=== PATIENT | male | born 1970 | race Caucasian/White ===

== ENCOUNTER 2019-08-14 22:39 | Emergency (ER) | payer OTHER ==
[~2019-08-14] VITALS: Ht 180.3 cm; Wt 70.5 kg
[2019-08-14] MEDS ORDERED: CLOZ100T57 PO (22:43)
[2019-08-14] MEDS ORDERED: OMEP10 PO (22:43)
[2019-08-14] MEDS ORDERED: BENZ1TAB10 PO (22:43)
[2019-08-15 01:48] VITALS: BP 140/88
== END 2019-08-15 02:31 | disposition home or self-care (01) ==
LOC: EMS 22:39
DX: Z76.0 Encounter for issue of repeat prescription (principal); F20.9 Schizophrenia, unspecified; F17.210 Nicotine dependence, cigarettes, uncomplicated

== ENCOUNTER 2019-08-15 09:41 | Inpatient (IN) | payer OTHER, MEDICAID ==
[~2019-08-15] VITALS: Ht 180.3 cm; Wt 62.8 kg
[~2019-08-15 09:41] MED LIST: BENZ1TAB10 PO; CLOZ100T57 PO; OMEP10 PO
[2019-08-15 10:32] LABS: BASOPHILS % (AUTO) 0.6 % (0.0-2.0); EOSINOPHILS % (AUTO) 0 % (1.0-6.0); HEMOGLOBIN 14.1 g/dL (13.5-17.5); LYMPHOCYTES # (AUTO) 0.9 K/uL (1.0-4.8); LYMPHOCYTES % (AUTO) 9.9 % (22.0-44.0); MEAN CORPUSCULAR HEMOGLOBIN 30.8 pg (26.0-34.0); MEAN CORPUSCULAR HGB CONC 33.6 G/dL (31.0-37.0); MEAN CORPUSCULAR VOLUME 92 fL (80-100); MONOCYTES % (AUTO) 11.7 % (2.0-9.0); NEUTROPHILS # (AUTO) 6.9 K/uL (1.8-7.7); NEUTROPHILS % (AUTO) 77.8 % (40.0-70.0); PLATELET COUNT (AUTO) 434 K/uL (150-450); RED BLOOD CELL COUNT(AUTO) 4.58 MIL/uL (4.50-5.90); RED CELL DISTRIBUTION WIDTH 14.3 % (11.5-14.5)
[2019-08-15 10:41] LABS: ANION GAP 13 mmol/L (8-16); CARBON DIOXIDE 21 mmol/L (22-29); CHLORIDE 103 mmol/L (98-107); CREATININE 1.14 mg/dL (0.60-1.30); GLOMERULAR FILTR. RATE CALC > 60 mL/min (>60); GLUCOSE,RANDOM 118 mg/dL (70-110); POTASSIUM 4.2 mmol/L (3.5-5.1); SODIUM SERUM 137 mmol/L (136-145); UREA NITROGEN, BLOOD 22 mg/dL (7-18)
[2019-08-15 10:47] LABS: ALANINE AMINOTRANSFERASE 148 U/L (12-78); ALBUMIN 3.7 g/dL (3.4-5.0); ALKALINE PHOSPHATASE 77 U/L (46-116); ASPARTATE AMINOTRANSFERASE 545 U/L (15-37); BILIRUBIN,TOTAL 0.9 mg/dL (0.1-1.0); TOTAL PROTEIN, SERUM 7.2 g/dL (6.4-8.2)
[2019-08-15] MEDS ORDERED: HALOPERIDOL 5 MG TABLET PO PRN (12:15)
[2019-08-15] MEDS ORDERED: HALOPERIDOL 5 MG TABLET PO ONE (12:15)
[2019-08-15] MEDS ORDERED: DiphenhydrAMINE HCL 25 MG CAPSULE PO ONE (12:15)
[2019-08-15] MEDS ORDERED: ZOLPIDEM TARTRATE 10 MG TABLET PO PRN (12:15)
[2019-08-15] MEDS ORDERED: LORazepam 2 MG TABLET PO PRN (12:15)
[2019-08-15 14:31] LABS: ACETAMINOPHEN < 2 mcg/mL (10-30); SALICYLATE 5.9 mg/dL (2.8-20.0)
[2019-08-15 14:33] VITALS: BP 129/108
[2019-08-15] MEDS ORDERED: INFLUENZA VIRUS VACCINE QVS 2019-20 (3YR+)/PF 60 MCG/0.5 ML SYRINGE IM ONE (15:15)
[2019-08-15 18:04] VITALS: BP 121/91
[2019-08-15] MEDS: CloZAPine 100 MG TABLET PO SCH (20:09)
[2019-08-16] MEDS ORDERED: PETROLATUM,WHITE 28 GM JELLY TP PRN (09:15)
[2019-08-16] MEDS ORDERED: DOCUSATE SODIUM 100 MG CAPSULE PO PRN (09:15)
[2019-08-16] MEDS ORDERED: NICOTINE 14 MG/24 HOUR PATCH TD PRN (09:15)
[2019-08-16] MEDS ORDERED: GuaiFENesin/D-METHORPHAN [SUGAR-FREE] 200-20MG/10 ML SYRUP UDCUP PO PRN (09:15)
[2019-08-16] MEDS ORDERED: ACETAMINOPHEN 325 MG TABLET PO PRN (09:15)
[2019-08-16] MEDS ORDERED: ONDANSETRON HCL 4 MG TABLET PO PRN (09:15)
[2019-08-16] MEDS ORDERED: MAGNESIUM HYDROXIDE SUSPENSION 30 ML UDCUP PO PRN (09:15)
[2019-08-16] MEDS ORDERED: ALBUTEROL SULFATE HFA 90 MCG/PUFF 8 GM INHALER IH PRN (09:15)
[2019-08-16] MEDS ORDERED: LOPERAMIDE HCL 2 MG CAPSULE PO PRN (09:15)
[2019-08-16] MEDS ORDERED: MAG HYDROX/AL HYDROX/SIMETH ES 30 ML SUSPENSION UDCUP PO PRN (09:15)
[2019-08-16] MEDS ORDERED: CloNIDine HCL 0.1 MG TABLET PO PRN (09:15)
[2019-08-16] MEDS: NICOTINE 21 MG/24 HOUR PATCH TD SCH (09:52)
[2019-08-16 10:15] LABS: CHOL/HDL RATIO 3.1 (4.2-7.3)
[2019-08-16 10:33] VITALS: BP 117/74
[2019-08-16 16:10] VITALS: BP 119/92
[2019-08-16] MEDS: IBUPROFEN 400 MG TABLET PO PRN (16:11)
[2019-08-16] MEDS: BACITRACIN 28.4 GM OINTMENT TP SCH (19:53)
[2019-08-16] MEDS: LamoTRIgine 100 MG TABLET PO SCH (20:01)
[2019-08-16] MEDS: CloZAPine 100 MG TABLET PO SCH (20:02)
[2019-08-17] MEDS: OMEPRAZOLE 10 MG CAPSULE PO SCH (08:16)
[2019-08-17] MEDS: NICOTINE 21 MG/24 HOUR PATCH TD SCH (08:20)
[2019-08-17] MEDS: BACITRACIN 28.4 GM OINTMENT TP SCH ×2 (08:20→16:06)
[2019-08-17 09:36] VITALS: BP 131/98
[2019-08-17 16:26] VITALS: BP 131/94
[2019-08-17 20:10] VITALS: BP 129/89
[2019-08-17] MEDS: IBUPROFEN 400 MG TABLET PO PRN (20:17)
[2019-08-17] MEDS: CloZAPine 100 MG TABLET PO SCH (20:17)
[2019-08-17] MEDS: LamoTRIgine 100 MG TABLET PO SCH (20:17)
[2019-08-18] MEDS: OMEPRAZOLE 10 MG CAPSULE PO SCH (08:05)
[2019-08-18] MEDS: NICOTINE 21 MG/24 HOUR PATCH TD SCH (08:09)
[2019-08-18] MEDS: BACITRACIN 28.4 GM OINTMENT TP SCH ×3 (08:09→16:45)
[2019-08-18 09:17] VITALS: BP 107/78
[2019-08-18 20:08] VITALS: BP 129/92
[2019-08-18] MEDS: CloZAPine 100 MG TABLET PO SCH (20:21)
[2019-08-18] MEDS: LamoTRIgine 100 MG TABLET PO SCH (20:21)
[2019-08-19] MEDS: BACITRACIN 28.4 GM OINTMENT TP SCH ×2 (08:29→16:09)
[2019-08-19] MEDS: OMEPRAZOLE 10 MG CAPSULE PO SCH (08:29)
[2019-08-19] MEDS: NICOTINE 21 MG/24 HOUR PATCH TD SCH (08:30)
[2019-08-19 09:41] VITALS: BP 105/45
[2019-08-19 16:25] VITALS: BP 112/83
[2019-08-19] MEDS: CloZAPine 100 MG TABLET PO SCH (20:35)
[2019-08-19] MEDS: LamoTRIgine 100 MG TABLET PO SCH (20:35)
[2019-08-20 08:30] VITALS: BP 103/59
[2019-08-20] MEDS: NICOTINE 21 MG/24 HOUR PATCH TD SCH (09:00)
[2019-08-20] MEDS: BACITRACIN 28.4 GM OINTMENT TP SCH ×2 (10:20→16:24)
[2019-08-20] MEDS: OMEPRAZOLE 10 MG CAPSULE PO SCH (10:20)
[2019-08-20 17:38] VITALS: BP 124/82
[2019-08-20] MEDS: LamoTRIgine 100 MG TABLET PO SCH (20:21)
[2019-08-20] MEDS: CloZAPine 100 MG TABLET PO SCH (20:21)
[2019-08-20] MEDS: IBUPROFEN 400 MG TABLET PO PRN (20:21)
[2019-08-21] MEDS: OMEPRAZOLE 10 MG CAPSULE PO SCH (08:05)
[2019-08-21] MEDS: NICOTINE 21 MG/24 HOUR PATCH TD SCH (08:08)
[2019-08-21] MEDS: BACITRACIN 28.4 GM OINTMENT TP SCH ×2 (08:08→16:16)
[2019-08-21 09:24] VITALS: BP 142/92
[2019-08-21 18:02] VITALS: BP 134/81
[2019-08-21] MEDS: LamoTRIgine 100 MG TABLET PO SCH (20:06)
[2019-08-21] MEDS: CloZAPine 100 MG TABLET PO SCH (20:06)
[2019-08-22 07:17] LABS: BASOPHILS % (AUTO) 0.9 % (0.0-2.0); EOSINOPHILS % (AUTO) 0.1 % (1.0-6.0); HEMATOCRIT 42.2 % (41-53); HEMOGLOBIN 14.2 g/dL (13.5-17.5); LYMPHOCYTES # (AUTO) 0.9 K/uL (1.0-4.8); LYMPHOCYTES % (AUTO) 24.9 % (22.0-44.0); MEAN CORPUSCULAR HEMOGLOBIN 31.1 pg (26.0-34.0); MEAN CORPUSCULAR HGB CONC 33.7 G/dL (31.0-37.0); MEAN CORPUSCULAR VOLUME 93 fL (80-100); MONOCYTES # (AUTO) 0.5 K/uL (0.1-1.0); MONOCYTES % (AUTO) 14.1 % (2.0-9.0); NEUTROPHILS # (AUTO) 2.2 K/uL (1.8-7.7); PLATELET COUNT (AUTO) 376 K/uL (150-450); RED BLOOD CELL COUNT(AUTO) 4.56 MIL/uL (4.50-5.90); RED CELL DISTRIBUTION WIDTH 13.9 % (11.5-14.5)
[2019-08-22] MEDS: OMEPRAZOLE 10 MG CAPSULE PO SCH (08:24)
[2019-08-22] MEDS: NICOTINE 21 MG/24 HOUR PATCH TD SCH (08:28)
[2019-08-22] MEDS: BACITRACIN 28.4 GM OINTMENT TP SCH ×2 (08:28→16:15)
[2019-08-22 10:44] VITALS: BP 107/75
[2019-08-22] MEDS: FOLIC ACID 1 MG TABLET PO SCH (12:54)
[2019-08-22] MEDS: MULTIVITAMINS WITH MINERALS, THERAPEUTIC TABLET PO SCH (12:54)
[2019-08-22] MEDS: THIAMINE HCL 100 MG TABLET PO SCH (12:54)
[2019-08-22 16:35] VITALS: BP 116/83
[2019-08-22] MEDS: CloZAPine 100 MG TABLET PO SCH (20:19)
[2019-08-22] MEDS: LamoTRIgine 100 MG TABLET PO SCH (20:19)
[2019-08-23 08:28] LABS: ALANINE AMINOTRANSFERASE 49 U/L (12-78); ALBUMIN 3.4 g/dL (3.4-5.0); ALKALINE PHOSPHATASE 66 U/L (46-116); ANION GAP 8 mmol/L (8-16); ASPARTATE AMINOTRANSFERASE 19 U/L (15-37); BILIRUBIN,TOTAL 0.2 mg/dL (0.1-1.0); CARBON DIOXIDE 26 mmol/L (22-29); CHLORIDE 107 mmol/L (98-107); GLOMERULAR FILTR. RATE CALC > 60 mL/min (>60); GLUCOSE,RANDOM 100 mg/dL (70-110); POTASSIUM 4.7 mmol/L (3.5-5.1); SODIUM SERUM 141 mmol/L (136-145); TOTAL PROTEIN, SERUM 6.4 g/dL (6.4-8.2); UREA NITROGEN, BLOOD 20 mg/dL (7-18)
[2019-08-23] MEDS: BACITRACIN 28.4 GM OINTMENT TP SCH (09:00)
[2019-08-23] MEDS: NICOTINE 21 MG/24 HOUR PATCH TD SCH (09:00)
[2019-08-23 09:21] VITALS: BP 107/65
[2019-08-23] MEDS: OMEPRAZOLE 10 MG CAPSULE PO SCH (09:42)
[2019-08-23] MEDS: THIAMINE HCL 100 MG TABLET PO SCH (09:42)
[2019-08-23] MEDS: FOLIC ACID 1 MG TABLET PO SCH (09:42)
[2019-08-23] MEDS: MULTIVITAMINS WITH MINERALS, THERAPEUTIC TABLET PO SCH (09:42)
[2019-08-23] MEDS: LamoTRIgine 100 MG TABLET PO SCH (20:01)
[2019-08-23] MEDS: CloZAPine 100 MG TABLET PO SCH (20:02)
[2019-08-23 21:22] VITALS: BP 111/72
[2019-08-24] MEDS: MULTIVITAMINS WITH MINERALS, THERAPEUTIC TABLET PO SCH (08:37)
[2019-08-24] MEDS: FOLIC ACID 1 MG TABLET PO SCH (08:37)
[2019-08-24] MEDS: THIAMINE HCL 100 MG TABLET PO SCH (08:37)
[2019-08-24] MEDS: NICOTINE 21 MG/24 HOUR PATCH TD SCH (08:38)
[2019-08-24] MEDS: OMEPRAZOLE 10 MG CAPSULE PO SCH (08:39)
[2019-08-24 08:44] VITALS: BP 112/76
[2019-08-24 17:00] VITALS: BP 103/75
[2019-08-24] MEDS: CloZAPine 100 MG TABLET PO SCH (20:06)
[2019-08-24] MEDS: LamoTRIgine 100 MG TABLET PO SCH (20:06)
[2019-08-25] MEDS: MULTIVITAMINS WITH MINERALS, THERAPEUTIC TABLET PO SCH (08:51)
[2019-08-25] MEDS: THIAMINE HCL 100 MG TABLET PO SCH (08:51)
[2019-08-25] MEDS: FOLIC ACID 1 MG TABLET PO SCH (08:51)
[2019-08-25] MEDS: OMEPRAZOLE 10 MG CAPSULE PO SCH (08:51)
[2019-08-25] MEDS: NICOTINE 21 MG/24 HOUR PATCH TD SCH (09:00)
[2019-08-25 09:44] VITALS: BP 129/87
[2019-08-25 16:07] VITALS: BP 115/72
[2019-08-25] MEDS: LamoTRIgine 100 MG TABLET PO SCH (20:06)
[2019-08-25] MEDS: CloZAPine 100 MG TABLET PO SCH (20:06)
[2019-08-26] MEDS: MULTIVITAMINS WITH MINERALS, THERAPEUTIC TABLET PO SCH (08:38)
[2019-08-26] MEDS: THIAMINE HCL 100 MG TABLET PO SCH (08:38)
[2019-08-26] MEDS: OMEPRAZOLE 10 MG CAPSULE PO SCH (08:38)
[2019-08-26] MEDS: FOLIC ACID 1 MG TABLET PO SCH (08:38)
[2019-08-26 08:49] VITALS: BP 111/69
[2019-08-26] MEDS: NICOTINE 21 MG/24 HOUR PATCH TD SCH (09:00)
[2019-08-26] MEDS ORDERED: LAMO100 PO (12:26)
== END 2019-08-26 16:00 | disposition home or self-care (01) | DRG 885 ==
LOC: EMS 09:44 → 3EI 12:32
PROVIDERS: ADMIT Psychiatry & Neurology Child & Adolescent Psychiatry; ATTEND Psychiatry & Neurology Child & Adolescent Psychiatry
DX: F20.0 Paranoid schizophrenia (principal); R45.851 Suicidal ideations; E46 Unspecified protein-calorie malnutrition; Z68.1 Body mass index [BMI] 19.9 or less, adult; K21.9 Gastro-esophageal reflux disease without esophagitis; F41.9 Anxiety disorder, unspecified; Z90.49 Acquired absence of other specified parts of digestive tract; R74.0 Nonspecific elevation of levels of transaminase and lactic acid dehydrogenase [LDH]; E78.5 Hyperlipidemia, unspecified; F17.200 Nicotine dependence, unspecified, uncomplicated; F10.10 Alcohol abuse, uncomplicated; Y90.9 Presence of alcohol in blood, level not specified; R74.8 Abnormal levels of other serum enzymes; D72.819 Decreased white blood cell count, unspecified; Z59.0 Homelessness; Z91.19 Patient's noncompliance with other medical treatment and regimen; Z79.899 Other long term (current) drug therapy; Z28.21 Immunization not carried out because of patient refusal
CPT/HCPCS: 70450; 76700; 80159; G0480; G0481

== ENCOUNTER 2019-09-06 14:19 | Inpatient (IN) | payer OTHER, MEDICAID ==
[~2019-09-06] VITALS: Ht 180.3 cm; Wt 62.6 kg
[~2019-09-06 14:19] MED LIST changes: -BENZ1TAB10 PO; +CLOZ100T32 PO; -CLOZ100T57 PO; +LAMO100 PO; -OMEP10 PO
[2019-09-06] MEDS ORDERED: HALOPERIDOL LACTATE 5 MG/ML VIAL IM ONE (18:15)
[2019-09-06] MEDS ORDERED: DiphenhydrAMINE HCL 50 MG/ML VIAL IM ONE (18:15)
[2019-09-06] MEDS ORDERED: LORazepam 2 MG/ML VIAL IM ONE (18:15)
[2019-09-06 19:35] LABS: APPEARANCE,URINE CLEAR (CLEAR); BILIRUBIN,URINE NEGATIVE (NEGATIVE); GLUCOSE, URINE (UA) NEGATIVE (NEGATIVE); KETONES,URINE >=80 mg/dL (NEGATIVE); LEUKOCYTE ESTERASE ,URINE NEGATIVE (NEGATIVE); NITRATE,URINE NEGATIVE (NEGATIVE); OCCULT BLOOD,URINE NEGATIVE (NEGATIVE); PH,URINE 6.5 (5.0-8.0); PROTEIN,URINE NEGATIVE (NEGATIVE)
[2019-09-06 20:41] LABS: AMPHET/METH SCREEN,URINE NEGATIVE (NEGATIVE); BARBITURATE SCREEN, URINE NEGATIVE (NEGATIVE); BENZODIAZEPINES SCREEN,URINE NEGATIVE (NEGATIVE); CANNABINOID SCREEN,URINE NEGATIVE (NEGATIVE); COCAINE SCREEN,URINE NEGATIVE (NEGATIVE); METHADONE SCREEN, URINE NEGATIVE (NEGATIVE); OPIATE SCREEN,URINE NEGATIVE (NEGATIVE)
[2019-09-06 20:45] LABS: PHENCYCLIDINE SCREEN,URINE NEGATIVE (NEGATIVE)
[2019-09-06 20:50] LABS: INFLUENZA TYPE A NEGATIVE FOR TYPE A (NEGATIVE); INFLUENZA TYPE B NEGATIVE FOR TYPE B (NEGATIVE)
[2019-09-06 21:03] LABS: BASOPHILS % (AUTO) 0.6 % (0.0-2.0); EOSINOPHILS % (AUTO) 0.1 % (1.0-6.0); HEMATOCRIT 40.7 % (41-53); HEMOGLOBIN 13.7 g/dL (13.5-17.5); LYMPHOCYTES # (AUTO) 1.2 K/uL (1.0-4.8); LYMPHOCYTES % (AUTO) 14.5 % (22.0-44.0); MEAN CORPUSCULAR HGB CONC 33.5 G/dL (31.0-37.0); MEAN CORPUSCULAR VOLUME 92 fL (80-100); MONOCYTES # (AUTO) 0.7 K/uL (0.1-1.0); MONOCYTES % (AUTO) 8.7 % (2.0-9.0); NEUTROPHILS # (AUTO) 6.1 K/uL (1.8-7.7); NEUTROPHILS % (AUTO) 76.1 % (40.0-70.0); PLATELET COUNT (AUTO) 343 K/uL (150-450); RED BLOOD CELL COUNT(AUTO) 4.41 MIL/uL (4.50-5.90); RED CELL DISTRIBUTION WIDTH 13.7 % (11.5-14.5)
[2019-09-06 21:23] LABS: ANION GAP 7 mmol/L (8-16); CALCIUM, TOTAL 9.1 mg/dL (8.8-10.5); CARBON DIOXIDE 28 mmol/L (22-29); CHLORIDE 103 mmol/L (98-107); CREATININE 0.94 mg/dL (0.60-1.30); GLOMERULAR FILTR. RATE CALC > 60 mL/min (>60); GLUCOSE,RANDOM 97 mg/dL (70-110); POTASSIUM 3.9 mmol/L (3.5-5.1); SODIUM SERUM 138 mmol/L (136-145); UREA NITROGEN, BLOOD 7 mg/dL (7-18)
[2019-09-06 21:24] LABS: C-REACTIVE PROTEIN QUANT 2.96 mg/dL (0.00-0.30); LIPASE 83 U/L (73-393)
[2019-09-06 21:24] LABS: BACTERIA,URINE None Seen /HPF (None Seen); RBC,URINE None Seen /HPF (0-2); SQUAMOUS EPITHELIAL CELL,UR Rare /LPF (None Seen); WBC,URINE None Seen /HPF (0-5); YEAST,URINE None Seen /HPF (None Seen)
[2019-09-06 21:30] LABS: ALANINE AMINOTRANSFERASE 29 U/L (12-78); ALBUMIN 3.4 g/dL (3.4-5.0); ALKALINE PHOSPHATASE 100 U/L (46-116); ASPARTATE AMINOTRANSFERASE 31 U/L (15-37); BILIRUBIN,TOTAL 0.6 mg/dL (0.1-1.0); TOTAL PROTEIN, SERUM 6.9 g/dL (6.4-8.2)
[2019-09-06 21:45] LABS: LACTIC ACID 1.5 mmol/L (0.4-2.0)
[2019-09-07] MEDS: ZOLPIDEM TARTRATE 10 MG TABLET PO PRN (01:14)
[2019-09-07] MEDS: LORazepam 2 MG TABLET PO PRN ×2 (01:14→18:40)
[2019-09-07] MEDS: HALOPERIDOL 5 MG TABLET PO PRN ×2 (01:14→18:40)
[2019-09-07 07:02] LABS: CHOL/HDL RATIO 3.5 (4.2-7.3)
[2019-09-07] MEDS ORDERED: NICOTINE 14 MG/24 HOUR PATCH TD PRN (07:45)
[2019-09-07] MEDS ORDERED: GuaiFENesin/D-METHORPHAN [SUGAR-FREE] 200-20MG/10 ML SYRUP UDCUP PO PRN (07:45)
[2019-09-07] MEDS ORDERED: ALBUTEROL SULFATE HFA 90 MCG/PUFF 8 GM INHALER IH PRN (07:45)
[2019-09-07] MEDS ORDERED: PETROLATUM,WHITE 28 GM JELLY TP PRN (07:45)
[2019-09-07] MEDS ORDERED: CloNIDine HCL 0.1 MG TABLET PO PRN (07:45)
[2019-09-07] MEDS ORDERED: MAG HYDROX/AL HYDROX/SIMETH ES 30 ML SUSPENSION UDCUP PO PRN (07:45)
[2019-09-07] MEDS ORDERED: MAGNESIUM HYDROXIDE SUSPENSION 30 ML UDCUP PO PRN (07:45)
[2019-09-07] MEDS ORDERED: IBUPROFEN 400 MG TABLET PO PRN (07:45)
[2019-09-07] MEDS ORDERED: DOCUSATE SODIUM 100 MG CAPSULE PO PRN (07:45)
[2019-09-07] MEDS ORDERED: ACETAMINOPHEN 325 MG TABLET PO PRN (07:45)
[2019-09-07] MEDS ORDERED: LOPERAMIDE HCL 2 MG CAPSULE PO PRN (07:45)
[2019-09-07] MEDS ORDERED: ONDANSETRON HCL 4 MG TABLET PO PRN (07:45)
[2019-09-07 10:23] VITALS: BP 116/78
[2019-09-07] MEDS: NICOTINE 21 MG/24 HOUR PATCH TD SCH (14:18)
[2019-09-07 16:26] VITALS: BP 138/95
[2019-09-07] MEDS: BACITRACIN 28.4 GM OINTMENT TP SCH (17:08)
[2019-09-07] MEDS: CloZAPine 100 MG TABLET PO SCH (20:38)
[2019-09-07] MEDS: LamoTRIgine 100 MG TABLET PO SCH (20:38)
[2019-09-08 00:29] VITALS: BP 108/69
[2019-09-08 09:18] VITALS: BP 110/68
[2019-09-08] MEDS: BACITRACIN 28.4 GM OINTMENT TP SCH ×2 (09:54→17:03)
[2019-09-08] MEDS: NICOTINE 21 MG/24 HOUR PATCH TD SCH (09:54)
[2019-09-08 16:18] VITALS: BP 134/94
[2019-09-08] MEDS: LORazepam 2 MG TABLET PO PRN (17:06)
[2019-09-08] MEDS: HALOPERIDOL 5 MG TABLET PO PRN (17:06)
[2019-09-08] MEDS: LamoTRIgine 100 MG TABLET PO SCH (20:07)
[2019-09-08] MEDS: ZOLPIDEM TARTRATE 10 MG TABLET PO PRN (20:08)
[2019-09-08] MEDS: CloZAPine 100 MG TABLET PO SCH (20:08)
[2019-09-09 02:00] VITALS: BP 110/72
[2019-09-09 08:03] LABS: BASOPHILS % (AUTO) 0.9 % (0.0-2.0); EOSINOPHILS % (AUTO) 0.4 % (1.0-6.0); HEMATOCRIT 40.1 % (41-53); HEMOGLOBIN 13.5 g/dL (13.5-17.5); MEAN CORPUSCULAR HEMOGLOBIN 31.1 pg (26.0-34.0); MEAN CORPUSCULAR HGB CONC 33.6 G/dL (31.0-37.0); MEAN CORPUSCULAR VOLUME 93 fL (80-100); MONOCYTES # (AUTO) 0.5 K/uL (0.1-1.0); MONOCYTES % (AUTO) 11.8 % (2.0-9.0); NEUTROPHILS # (AUTO) 2.6 K/uL (1.8-7.7); NEUTROPHILS % (AUTO) 61.9 % (40.0-70.0); PLATELET COUNT (AUTO) 356 K/uL (150-450); RED BLOOD CELL COUNT(AUTO) 4.33 MIL/uL (4.50-5.90); RED CELL DISTRIBUTION WIDTH 14.4 % (11.5-14.5)
[2019-09-09 08:36] VITALS: BP 131/69
[2019-09-09] MEDS: NICOTINE 21 MG/24 HOUR PATCH TD SCH (08:52)
[2019-09-09] MEDS: BACITRACIN 28.4 GM OINTMENT TP SCH ×2 (08:52→16:14)
[2019-09-09 16:13] VITALS: BP 117/77
[2019-09-09] MEDS: LORazepam 2 MG TABLET PO PRN (16:27)
[2019-09-09] MEDS: HALOPERIDOL 5 MG TABLET PO PRN (16:27)
[2019-09-09] MEDS: LamoTRIgine 100 MG TABLET PO SCH (20:23)
[2019-09-09] MEDS: ZOLPIDEM TARTRATE 10 MG TABLET PO PRN (20:23)
[2019-09-09] MEDS: CloZAPine 100 MG TABLET PO SCH (20:23)
[2019-09-10 06:52] VITALS: BP 110/69
[2019-09-10 08:32] VITALS: BP 111/78
[2019-09-10] MEDS: NICOTINE 21 MG/24 HOUR PATCH TD SCH (08:42)
[2019-09-10] MEDS: BACITRACIN 28.4 GM OINTMENT TP SCH ×2 (08:42→17:51)
[2019-09-10 16:07] VITALS: BP 130/84
[2019-09-10] MEDS: ZOLPIDEM TARTRATE 10 MG TABLET PO PRN (20:13)
[2019-09-10] MEDS: LamoTRIgine 100 MG TABLET PO SCH (20:13)
[2019-09-10] MEDS: CloZAPine 100 MG TABLET PO SCH (20:14)
[2019-09-11 06:26] VITALS: BP 99/65
[2019-09-11] MEDS: NICOTINE 21 MG/24 HOUR PATCH TD SCH (08:37)
[2019-09-11] MEDS: BACITRACIN 28.4 GM OINTMENT TP SCH ×2 (08:37→16:23)
[2019-09-11 16:08] VITALS: BP 111/60
[2019-09-11] MEDS: LORazepam 2 MG TABLET PO PRN (16:23)
[2019-09-11] MEDS: HALOPERIDOL 5 MG TABLET PO PRN (16:23)
[2019-09-11] MEDS: ZOLPIDEM TARTRATE 10 MG TABLET PO PRN (20:18)
[2019-09-11] MEDS: CloZAPine 100 MG TABLET PO SCH (20:18)
[2019-09-11] MEDS: LamoTRIgine 100 MG TABLET PO SCH (20:18)
[2019-09-12 06:41] VITALS: BP 113/90
[2019-09-12] MEDS: NICOTINE 21 MG/24 HOUR PATCH TD SCH (09:00)
[2019-09-12] MEDS: BACITRACIN 28.4 GM OINTMENT TP SCH ×2 (10:43→16:19)
[2019-09-12 16:08] VITALS: BP 138/95
[2019-09-12] MEDS: HALOPERIDOL 5 MG TABLET PO PRN (16:19)
[2019-09-12] MEDS: LORazepam 2 MG TABLET PO PRN (16:19)
[2019-09-12] MEDS: LamoTRIgine 100 MG TABLET PO SCH (20:23)
[2019-09-12] MEDS: CloZAPine 100 MG TABLET PO SCH (20:23)
[2019-09-12] MEDS: ZOLPIDEM TARTRATE 10 MG TABLET PO PRN (20:24)
[2019-09-12 20:41] VITALS: BP 118/78
[2019-09-13] MEDS: NICOTINE 21 MG/24 HOUR PATCH TD SCH (08:00)
[2019-09-13 08:07] VITALS: BP 110/83
[2019-09-13] MEDS: BACITRACIN 28.4 GM OINTMENT TP SCH ×2 (08:12→15:54)
[2019-09-13] MEDS: HALOPERIDOL 5 MG TABLET PO PRN (15:54)
[2019-09-13] MEDS: LORazepam 2 MG TABLET PO PRN (15:54)
[2019-09-13 16:38] VITALS: BP 132/93
[2019-09-13] MEDS: ZOLPIDEM TARTRATE 10 MG TABLET PO PRN (20:09)
[2019-09-13] MEDS: LamoTRIgine 100 MG TABLET PO SCH (20:09)
[2019-09-13] MEDS: CloZAPine 100 MG TABLET PO SCH (20:09)
[2019-09-13 20:30] VITALS: BP 122/78
[2019-09-14 04:56] VITALS: BP 129/80
[2019-09-14 08:38] VITALS: BP 130/88
[2019-09-14 08:43] LABS: BASOPHILS % (AUTO) 0.5 % (0.0-2.0); EOSINOPHILS % (AUTO) 0.1 % (1.0-6.0); HEMATOCRIT 40.9 % (41-53); HEMOGLOBIN 13.6 g/dL (13.5-17.5); LYMPHOCYTES # (AUTO) 0.8 K/uL (1.0-4.8); LYMPHOCYTES % (AUTO) 13.1 % (22.0-44.0); MEAN CORPUSCULAR HEMOGLOBIN 30.6 pg (26.0-34.0); MEAN CORPUSCULAR HGB CONC 33.3 G/dL (31.0-37.0); MEAN CORPUSCULAR VOLUME 92 fL (80-100); MONOCYTES # (AUTO) 0.6 K/uL (0.1-1.0); MONOCYTES % (AUTO) 10.3 % (2.0-9.0); NEUTROPHILS # (AUTO) 4.5 K/uL (1.8-7.7); PLATELET COUNT (AUTO) 381 K/uL (150-450); RED BLOOD CELL COUNT(AUTO) 4.46 MIL/uL (4.50-5.90); RED CELL DISTRIBUTION WIDTH 13.6 % (11.5-14.5)
[2019-09-14] MEDS: NICOTINE 21 MG/24 HOUR PATCH TD SCH (09:00)
[2019-09-14] MEDS: BACITRACIN 28.4 GM OINTMENT TP SCH ×2 (09:30→16:27)
[2019-09-14 16:14] VITALS: BP 128/76
[2019-09-14] MEDS: CloZAPine 100 MG TABLET PO SCH (20:22)
[2019-09-14] MEDS: LamoTRIgine 100 MG TABLET PO SCH (20:22)
[2019-09-15 05:58] VITALS: BP 114/76
[2019-09-15 08:03] VITALS: BP 101/60
[2019-09-15] MEDS: NICOTINE 21 MG/24 HOUR PATCH TD SCH ×2 (09:00→09:02)
[2019-09-15] MEDS: BACITRACIN 28.4 GM OINTMENT TP SCH ×2 (09:02→16:58)
[2019-09-15 20:07] VITALS: BP 106/76
[2019-09-15] MEDS: CloZAPine 100 MG TABLET PO SCH (20:12)
[2019-09-15] MEDS: LamoTRIgine 100 MG TABLET PO SCH (20:12)
[2019-09-16 06:15] VITALS: BP 116/71
[2019-09-16 08:04] VITALS: BP 122/69
[2019-09-16 08:05] LABS: BASOPHILS % (AUTO) 0.8 % (0.0-2.0); EOSINOPHILS % (AUTO) 0.1 % (1.0-6.0); HEMATOCRIT 41.5 % (41-53); LYMPHOCYTES % (AUTO) 18.4 % (22.0-44.0); MEAN CORPUSCULAR HEMOGLOBIN 31.1 pg (26.0-34.0); MEAN CORPUSCULAR HGB CONC 33.8 G/dL (31.0-37.0); MEAN CORPUSCULAR VOLUME 92 fL (80-100); MONOCYTES # (AUTO) 0.5 K/uL (0.1-1.0); MONOCYTES % (AUTO) 8.4 % (2.0-9.0); NEUTROPHILS % (AUTO) 72.3 % (40.0-70.0); PLATELET COUNT (AUTO) 392 K/uL (150-450); RED BLOOD CELL COUNT(AUTO) 4.51 MIL/uL (4.50-5.90); RED CELL DISTRIBUTION WIDTH 13.7 % (11.5-14.5)
[2019-09-16] MEDS: NICOTINE 21 MG/24 HOUR PATCH TD SCH (09:00)
[2019-09-16] MEDS: BACITRACIN 28.4 GM OINTMENT TP SCH ×2 (09:00→16:31)
[2019-09-16 16:07] VITALS: BP 90/87
[2019-09-16] MEDS: LamoTRIgine 100 MG TABLET PO SCH (20:07)
[2019-09-16] MEDS: ZOLPIDEM TARTRATE 10 MG TABLET PO PRN (20:07)
[2019-09-16] MEDS: CloZAPine 100 MG TABLET PO SCH (20:07)
[2019-09-17 05:10] VITALS: BP 138/88
[2019-09-17 08:17] VITALS: BP 119/82
[2019-09-17] MEDS: NICOTINE 21 MG/24 HOUR PATCH TD SCH (08:53)
[2019-09-17] MEDS: BACITRACIN 28.4 GM OINTMENT TP SCH ×2 (08:53→16:36)
[2019-09-17 16:00] VITALS: BP 107/72
[2019-09-17] MEDS: LORazepam 2 MG TABLET PO PRN (16:36)
[2019-09-17] MEDS: LamoTRIgine 100 MG TABLET PO SCH (20:11)
[2019-09-17] MEDS: CloZAPine 100 MG TABLET PO SCH (20:11)
[2019-09-17] MEDS: ZOLPIDEM TARTRATE 10 MG TABLET PO PRN (20:11)
[2019-09-18 06:20] VITALS: BP 137/93
[2019-09-18 08:05] VITALS: BP 121/78
[2019-09-18] MEDS: BACITRACIN 28.4 GM OINTMENT TP SCH ×2 (09:00→16:24)
[2019-09-18] MEDS: NICOTINE 21 MG/24 HOUR PATCH TD SCH (09:00)
[2019-09-18 16:05] VITALS: BP 121/90
[2019-09-18] MEDS: LORazepam 2 MG TABLET PO PRN (16:24)
[2019-09-18] MEDS: CloZAPine 100 MG TABLET PO SCH (20:22)
[2019-09-18] MEDS: LamoTRIgine 100 MG TABLET PO SCH (20:23)
[2019-09-18] MEDS: ZOLPIDEM TARTRATE 10 MG TABLET PO PRN (20:23)
[2019-09-19 05:53] VITALS: BP 127/80
[2019-09-19 08:05] VITALS: BP 113/72
[2019-09-19] MEDS: NICOTINE 21 MG/24 HOUR PATCH TD SCH (08:42)
[2019-09-19] MEDS: BACITRACIN 28.4 GM OINTMENT TP SCH ×2 (08:42→17:00)
[2019-09-19 16:14] VITALS: BP 109/80
== END 2019-09-19 17:00 | disposition home or self-care (01) | DRG 885 ==
LOC: EMS 14:22 → B3A 09-07 06:29
PROVIDERS: ADMIT Psychiatry & Neurology Child & Adolescent Psychiatry; ATTEND Psychiatry & Neurology Child & Adolescent Psychiatry
DX: F20.0 Paranoid schizophrenia (principal); E46 Unspecified protein-calorie malnutrition; Z68.1 Body mass index [BMI] 19.9 or less, adult; K21.9 Gastro-esophageal reflux disease without esophagitis; F17.200 Nicotine dependence, unspecified, uncomplicated; E78.2 Mixed hyperlipidemia; D64.9 Anemia, unspecified; R45.87 Impulsiveness; K59.00 Constipation, unspecified; Y90.9 Presence of alcohol in blood, level not specified; F10.10 Alcohol abuse, uncomplicated; F41.9 Anxiety disorder, unspecified; Z79.899 Other long term (current) drug therapy; Z78.1 Physical restraint status
CPT/HCPCS: 51701; 83605; 84145; 86140; 87040; 87081; 87804; G0480; J1200; J1630; J2060

== ENCOUNTER 2020-10-05 13:50 | Inpatient (IN) | payer MEDICARE, MEDICAID ==
[~2020-10-05] VITALS: Ht 177.8 cm; Wt 61.3 kg
[2020-10-05] MEDS ORDERED: ZOLPIDEM TARTRATE 10 MG TABLET PO PRN (14:00)
[2020-10-05 16:57] VITALS: BP 125/93
[2020-10-05] MEDS: HALOPERIDOL 5 MG TABLET PO PRN (17:24)
[2020-10-05] MEDS: LORazepam 2 MG TABLET PO PRN (17:24)
[2020-10-05] MEDS ORDERED: LORazepam 2 MG/ML VIAL IM ONE (20:15)
[2020-10-05] MEDS ORDERED: ChlorproMAZINE HCL 50 MG/2 ML AMP IM ONE (20:15)
[2020-10-05] MEDS ORDERED: DiphenhydrAMINE HCL 50 MG/ML VIAL IM ONE (20:15)
[2020-10-06 06:06] VITALS: BP 135/90
[2020-10-06] MEDS ORDERED: PETROLATUM,WHITE 28 GM JELLY TP PRN (07:30)
[2020-10-06] MEDS ORDERED: CloNIDine HCL 0.1 MG TABLET PO PRN (07:30)
[2020-10-06] MEDS ORDERED: GuaiFENesin/D-METHORPHAN [SUGAR-FREE] 200-20MG/10 ML SYRUP UDCUP PO PRN (07:30)
[2020-10-06] MEDS ORDERED: ONDANSETRON HCL 4 MG TABLET PO PRN (07:30)
[2020-10-06] MEDS ORDERED: ALBUTEROL SULFATE HFA 90 MCG/PUFF 8 GM INHALER IH PRN (07:30)
[2020-10-06] MEDS ORDERED: MAGNESIUM HYDROXIDE SUSPENSION 30 ML UDCUP PO PRN (07:30)
[2020-10-06] MEDS ORDERED: ACETAMINOPHEN 325 MG TABLET PO PRN (07:30)
[2020-10-06] MEDS ORDERED: LOPERAMIDE HCL 2 MG CAPSULE PO PRN (07:30)
[2020-10-06] MEDS ORDERED: MAG HYDROX/AL HYDROX/SIMETH ES 30 ML SUSPENSION UDCUP PO PRN (07:30)
[2020-10-06] MEDS ORDERED: DOCUSATE SODIUM 100 MG CAPSULE PO PRN (07:30)
[2020-10-06] MEDS ORDERED: NICOTINE 14 MG/24 HOUR PATCH TD PRN (07:30)
[2020-10-06] MEDS ORDERED: IBUPROFEN 400 MG TABLET PO PRN (07:30)
[2020-10-06 08:48] VITALS: BP 130/88
[2020-10-06 16:19] VITALS: BP 118/86
[2020-10-06 16:51] LABS: BASOPHILS % (AUTO) 0.9 % (0.0-2.0); EOSINOPHILS % (AUTO) 0.2 % (1.0-6.0); HEMATOCRIT 47.8 % (41-53); HEMOGLOBIN 15.9 g/dL (13.5-17.5); LYMPHOCYTES # (AUTO) 1.1 K/uL (1.0-4.8); LYMPHOCYTES % (AUTO) 16.6 % (22.0-44.0); MEAN CORPUSCULAR HEMOGLOBIN 31.8 pg (26.0-34.0); MEAN CORPUSCULAR HGB CONC 33.3 G/dL (31.0-37.0); MEAN CORPUSCULAR VOLUME 95 fL (80-100); MONOCYTES # (AUTO) 0.7 K/uL (0.1-1.0); MONOCYTES % (AUTO) 10.3 % (2.0-9.0); NEUTROPHILS # (AUTO) 4.8 K/uL (1.8-7.7); RED BLOOD CELL COUNT(AUTO) 5.01 MIL/uL (4.50-5.90); RED CELL DISTRIBUTION WIDTH 13.2 % (11.5-14.5)
[2020-10-06 17:40] LABS: PLATELET COUNT (AUTO) 359 K/uL (150-450)
[2020-10-06] MEDS: CloZAPine 100 MG TABLET PO SCH (19:44)
[2020-10-06] MEDS: LamoTRIgine 100 MG TABLET PO SCH (19:45)
[2020-10-07] MEDS: HALOPERIDOL 5 MG TABLET PO PRN (16:15)
[2020-10-07] MEDS: LORazepam 2 MG TABLET PO PRN ×2 (16:15→20:25)
[2020-10-07 16:16] VITALS: BP 107/75
[2020-10-07] MEDS: CloZAPine 100 MG TABLET PO SCH (20:24)
[2020-10-07] MEDS: LamoTRIgine 100 MG TABLET PO SCH (20:25)
[2020-10-08 05:57] VITALS: BP 112/71
[2020-10-08 08:01] LABS: HEMOGLOBIN A1C 5.1 % (3.8-5.6)
[2020-10-08 08:07] LABS: ALANINE AMINOTRANSFERASE 23 U/L (12-78); ALBUMIN 3.3 g/dL (3.4-5.0); ALKALINE PHOSPHATASE 81 U/L (46-116); ANION GAP 7 mmol/L (8-16); ASPARTATE AMINOTRANSFERASE 21 U/L (15-37); BILIRUBIN,TOTAL 0.3 mg/dL (0.1-1.0); CALCIUM, TOTAL 9.2 mg/dL (8.8-10.5); CARBON DIOXIDE 31 mmol/L (22-29); CHLORIDE 106 mmol/L (98-107); CHOL/HDL RATIO 3.2 (4.2-7.3); CHOLESTEROL 151 mg/dL (131-200); CREATININE 0.86 mg/dL (0.60-1.30); FREE T4 (FREE THYROXINE) 0.89 ng/dL (0.76-1.46); GLOMERULAR FILTR. RATE CALC > 60 mL/min (>60); GLUCOSE,RANDOM 86 mg/dL (70-110); HDL CHOLESTEROL 47 mg/dL (40-60); LDL CHOL (CALC.) 86 mg/dL (0-130); POTASSIUM 5.1 mmol/L (3.5-5.1); SODIUM SERUM 144 mmol/L (136-145); THYROID STIMULATING HORMONE 2.39 uIU/mL (0.36-3.74); TRIGLYCERIDES 92 mg/dL (15-150); UREA NITROGEN, BLOOD 21 mg/dL (7-18)
[2020-10-08 08:17] VITALS: BP 122/77
[2020-10-08 16:39] VITALS: BP 122/81
[2020-10-08] MEDS: HALOPERIDOL 5 MG TABLET PO PRN (16:55)
[2020-10-08] MEDS: LORazepam 2 MG TABLET PO PRN (16:55)
[2020-10-08] MEDS: CloZAPine 100 MG TABLET PO SCH (20:23)
[2020-10-08] MEDS: LamoTRIgine 100 MG TABLET PO SCH (20:23)
[2020-10-09 05:37] VITALS: BP 114/74
[2020-10-09] MEDS: BACITRACIN 28 GM OINTMENT TP SCH ×2 (08:27→16:37)
[2020-10-09 08:57] VITALS: BP 113/67
[2020-10-09 16:38] VITALS: BP 127/80
[2020-10-09] MEDS: CloZAPine 100 MG TABLET PO SCH (20:49)
[2020-10-09] MEDS: LamoTRIgine 100 MG TABLET PO SCH (20:50)
[2020-10-10 06:17] VITALS: BP 118/77
[2020-10-10 08:33] VITALS: BP 128/88
[2020-10-10] MEDS: BACITRACIN 28 GM OINTMENT TP SCH ×2 (09:00→17:04)
[2020-10-10 16:15] VITALS: BP 133/87
[2020-10-10] MEDS: LamoTRIgine 100 MG TABLET PO SCH (20:02)
[2020-10-10] MEDS: CloZAPine 100 MG TABLET PO SCH (20:02)
[2020-10-11 05:56] VITALS: BP 145/97
[2020-10-11] MEDS: BACITRACIN 28 GM OINTMENT TP SCH ×2 (10:48→17:00)
[2020-10-11] MEDS: LamoTRIgine 100 MG TABLET PO SCH (20:27)
[2020-10-11] MEDS: CloZAPine 100 MG TABLET PO SCH (20:30)
[2020-10-12] MEDS: BACITRACIN 28 GM OINTMENT TP SCH ×2 (09:00→17:02)
[2020-10-12 10:54] VITALS: BP 109/74
[2020-10-12] MEDS: CloZAPine 100 MG TABLET PO SCH (20:04)
[2020-10-12] MEDS: LamoTRIgine 100 MG TABLET PO SCH (20:05)
[2020-10-13 07:23] LABS: BASOPHILS % (AUTO) 0.8 % (0.0-2.0); EOSINOPHILS % (AUTO) 0.1 % (1.0-6.0); HEMATOCRIT 46.7 % (41-53); HEMOGLOBIN 15.7 g/dL (13.5-17.5); LYMPHOCYTES # (AUTO) 1.5 K/uL (1.0-4.8); LYMPHOCYTES % (AUTO) 27.5 % (22.0-44.0); MEAN CORPUSCULAR HEMOGLOBIN 31.8 pg (26.0-34.0); MEAN CORPUSCULAR HGB CONC 33.5 G/dL (31.0-37.0); MEAN CORPUSCULAR VOLUME 95 fL (80-100); MONOCYTES # (AUTO) 0.6 K/uL (0.1-1.0); MONOCYTES % (AUTO) 10.6 % (2.0-9.0); NEUTROPHILS # (AUTO) 3.4 K/uL (1.8-7.7); PLATELET COUNT (AUTO) 375 K/uL (150-450); RED BLOOD CELL COUNT(AUTO) 4.93 MIL/uL (4.50-5.90); RED CELL DISTRIBUTION WIDTH 12.8 % (11.5-14.5)
[2020-10-13 07:30] LABS: ANION GAP 7 mmol/L (8-16); CARBON DIOXIDE 30 mmol/L (22-29); CHLORIDE 104 mmol/L (98-107); CREATININE 1.01 mg/dL (0.60-1.30); GLOMERULAR FILTR. RATE CALC > 60 mL/min (>60); GLUCOSE,RANDOM 90 mg/dL (70-110); POTASSIUM 5.2 mmol/L (3.5-5.1); SODIUM SERUM 141 mmol/L (136-145); UREA NITROGEN, BLOOD 23 mg/dL (7-18)
[2020-10-13] MEDS: BACITRACIN 28 GM OINTMENT TP SCH (09:00)
[2020-10-13] MEDS ORDERED: MULTIVITAMINS WITH MINERALS, THERAPEUTIC TABLET PO SCH (09:00)
[2020-10-13] MEDS: SODIUM POLYSTYRENE SULFONATE 15 GM/60 ML SUSPENSION BOTTLE PO ONE ×2 (09:30→10:12)
[2020-10-13] MEDS ORDERED: LAMO100 PO (13:10)
== END 2020-10-13 16:25 | disposition home or self-care (01) | DRG 885 ==
LOC: B3A 15:29
PROVIDERS: ADMIT Psychiatry & Neurology Child & Adolescent Psychiatry; ATTEND Psychiatry & Neurology Child & Adolescent Psychiatry
DX: F20.0 Paranoid schizophrenia (principal); R10.13 Epigastric pain; G44.209 Tension-type headache, unspecified, not intractable; Z20.822 Contact with and (suspected) exposure to COVID-19; E87.5 Hyperkalemia
CPT/HCPCS: 80048; 80053; 80061; 83036; 84436; 84439; 84443; 85025; G0480; J1200; J2060; J3230